=== PATIENT | male | born 1990 | race Caucasian/White ===

== ENCOUNTER 2023-11-15 20:08 | Emergency (ER) | payer OTHER ==
[~2023-11-15] VITALS: Ht 177.8 cm; Wt 68.0 kg
[2023-11-15 20:30] VITALS: O2SAT 98
[2023-11-15] MEDS: TETANUS, DIPHTHERIA, PERTUSSIS VAC/PF 0.5ML (>10YR OLD) IM ONE (23:47)
[2023-11-15] MEDS: IBUPROFEN 600MG TABLET PO ONE (23:48)
[2023-11-15] MEDS: LIDOCAINE HCL/PF 1% 10 MG/ML 5ML VIAL INFIL ONE (23:48)
[2023-11-15] MEDS: BACITRACIN ZINC OINT UDPKT TOP ONE (23:49)
[2023-11-16 00:55] VITALS: BP 115/71; PULSE 58; RESP 18; TEMP 98.3
== END 2023-11-16 00:58 | disposition home or self-care (01) ==
LOC: ER 20:08
DX: S61.213A Laceration without foreign body of left middle finger without damage to nail, initial encounter (principal); Z88.0 Allergy status to penicillin; W45.8XXA Other foreign body or object entering through skin, initial encounter; Y93.89 Activity, other specified; Y92.89 Other specified places as the place of occurrence of the external cause; Y99.8 Other external cause status
CPT/HCPCS: 99283; 90715; 12001; 90471; J3490